=== PATIENT | male | born 1980 ===

== ENCOUNTER → 2023-04-29 | Outpatient (CLI) | payer MEDICAID ==
[2023-04-29 15:39] LABS: Albumin 3.7 g/dL (3.4-5.0); Bilirubin, Direct < 0.1 mg/dL (0-0.2)
[2023-04-29 15:42] LABS: Alanine Aminotransferase 45 U/L (16-61); Alkaline Phosphatase 90 U/L (45-117); Aspartate Aminotransferase 18 U/L (15-37); Bilirubin, Total 0.2 mg/dL (0.2-1.0); Total Protein 7.1 g/dL (6.4-8.2)
== END | disposition home or self-care (01) ==
LOC: LAB 14:59
PROVIDERS: ATTEND Student in an Organized Health Care Education/Training Program
DX: B35.1 Tinea unguium (principal)
CPT/HCPCS: 36415; 80076

== ENCOUNTER → 2023-07-13 | Outpatient (CLI) | payer MEDICAID ==
[2023-07-13 17:01] LABS: Albumin 3.8 g/dL (3.4-5.0); Bilirubin, Direct < 0.1 mg/dL (0-0.2)
[2023-07-13 17:04] LABS: Alanine Aminotransferase 43 U/L (16-61); Alkaline Phosphatase 90 U/L (45-117); Aspartate Aminotransferase 20 U/L (15-37); Bilirubin, Total 0.3 mg/dL (0.2-1.0); Total Protein 7.3 g/dL (6.4-8.2)
== END | disposition home or self-care (01) ==
LOC: LAB 15:25
PROVIDERS: ATTEND Student in an Organized Health Care Education/Training Program
DX: B35.1 Tinea unguium (principal)
CPT/HCPCS: 36415; 80076